=== PATIENT | female | born 1970 | race Asian ===

== ENCOUNTER 2016-07-23 11:09 | Emergency (ER) | payer OTHER ==
[~2016-07-23] VITALS: Ht 147.3 cm; Wt 63.5 kg
[2016-07-23 11:25] VITALS: BP 130/79
[2016-07-23] MEDS ORDERED: TRIA15OI TP (12:41)
[2016-07-23] MEDS ORDERED: PRED20TA PO (12:41)
--- NOTE | 2016-07-23 12:41 | PHYS DOC ---
Past Medical History Past Medical History: No Pertinent History Past Surgical History: No Surgical History Alcohol Use: None Drug Use: None Adult General Chief Complaint Chief Complaint: ITCHING HPI HPI Patient is a 46 year old female presents emergency department stating that she has a rash on bilateral arms and neck area. Patient states she's had this for about 15-20 days. She states that the area itches and is very irritated. She denies any new clothing new laundry detergent new soaps. She denies any shortness of air difficulty breathing. She denies any sore throat, fevers or nausea or vomiting. Review of Systems Review of Systems Constitutional: Denies fever or chills [] Eyes: Denies change in visual acuity, redness, or eye pain [] HENT: Denies nasal congestion or sore throat [] Respiratory: Denies cough or shortness of breath [] Cardiovascular: No additional information not addressed in HPI [] GI: Denies abdominal pain, nausea, vomiting, bloody stools or diarrhea [] : Denies dysuria or hematuria [] Musculoskeletal: Denies back pain or joint pain [] Integument: rash denies skin lesions [] Neurologic: Denies headache, focal weakness or sensory changes [] Physical Exam Physical Exam Constitutional: Well developed, well nourished, no acute distress, non-toxic appearance. [] HENT: Normocephalic, atraumatic, bilateral external ears normal, oropharynx moist, no oral exudates, nose normal. Throat with no erythematous noted. Eyes: PERRLA, EOMI, conjunctiva normal, no discharge. [] Neck: Normal range of motion, no tenderness, supple, no stridor. [] Cardiovascular:Heart rate regular rhythm, no murmur [] Lungs & Thorax: Bilateral breath sounds clear to auscultation [] Skin: Warm, dry, no erythema. Patient with slightly red raised sandpapery type rash on arms and neck area. No drainage or discharge noted from the sites. Back: No tenderness Extremities: No tenderness, no cyanosis, no clubbing, ROM intact, no edema. [] Neurologic: Alert and oriented X 3, normal motor function, normal sensory function, no focal deficits noted. [] Psychologic: Affect normal, judgement normal, mood normal. [] Current Patient Data Vital Signs Vital Signs Date Time Temp Pulse Resp B/P Pulse Ox O2 Delivery O2 Flow Rate FiO2 07/23/16 11:25 98.1 75 18 99 Room Air 98.1 EKG EKG [] Radiology/Procedures Radiology/Procedures [] Course & Med Decision Making Course & Med Decision Making Pertinent Labs and Imaging studies reviewed. (See chart for details) Rapid strep negative. Patient will be discharged home with recommendations to use Benadryl 25 mg every 6 hours to help with itching and irritation. Keep the areas clean dry and cool. Patient will be provided with steroids. Patient will be discharged home in stable condition recommended to follow-up with primary care physician in the next 5-7 days. Since symptoms to return back to emergency department been provided. Patient agrees with discharge instructions treatment regimens and follow-up recommendations. Dragon Disclaimer Dragon Disclaimer This electronic medical record was generated, in whole or in part, using a voice recognition dictation system. Departure Departure Impression: Primary Impression: Contact dermatitis Disposition: HOME, SELF-CARE Condition: STABLE Referrals: NO PCP (PCP) Patient Instructions: Contact Dermatitis, [id number] Additional Instructions: Activity as tolerated. Benadryl 25 mg every 6 hours. This medication will cause drowsiness do not take any be alert and oriented. Medications as prescribed. Keep the areas clean dry and cool this will help prevent increased irritation. Aveeno baths may also help soothe the skin. Follow-up the primary care physician in the next 5-7 days. Return back to emergency prior signs symptoms of become worse. Scripts Triamcinolone Acetonide (Triamcinolone Acetonide 0.1% Oint)15 Gm Oint...g.1 Timothy TP BID WOUND CARE #1 TUBE Prov:JONO GILL NP 07/23/16 Prednisone 20 Mg [id number] Mg PO DAILY #14 TAB Prov:JONO GILL NP 07/23/16 JONO GILL NP Jul 23, 2016 12:41
[2016-07-23 14:35] LABS: NEGATIVE OBC STREP NEG; POSITIVE OBC STREP POS
== END 2016-07-23 12:52 | disposition home or self-care (01) ==
LOC: ER 11:09
DX: L25.9 Unspecified contact dermatitis, unspecified cause (principal)
CPT/HCPCS: 87070; 87880; 99283